=== PATIENT | female | born 1935 | race Caucasian/White ===

== ENCOUNTER 2016-06-06 05:08 | Inpatient (IN) | payer MEDICARE, BC ==
[2016-05-25 15:30] LABS: BASOPHILS 0.8 %; BASOPHILS ABSOLUTE 0.05 10/3/uL (0.0-0.16); EOSINOPHILS 2.6 %; EOSINOPHILS ABSOLUTE 0.16 10/3/uL (0.0-0.53); HEMATOCRIT 37.2 % (36.0-48.0); HEMOGLOBIN 12.5 g/dL (12.0-16.0); IMMATURE GRANULOCYTES 0.2 %; IMMATURE GRANULOCYTES ABSOLUTE 0.01 10/3/uL (0.0-0.11); LYMPHOCYTES 26.5 %; LYMPHOCYTES ABSOLUTE 1.65 10/3/uL (0.67-4.30); MEAN CORPUS HGB CONC 33.6 g/dL (32.0-36.0); MONOCYTES 8.5 %; MONOCYTES ABSOLUTE 0.53 10/3/uL (0.21-1.20); NEUTROPHILS 61.4 %; NEUTROPHILS ABSOLUTE 3.83 10/3/uL (2.02-8.40); PLATELET COUNT 261 10/3/uL (150-400); RBC DISTRIBUTION WIDTH 14.8 % (12.0-16.0); RED CELL COUNT 4.13 10/6/uL (4.0-5.6); WHITE BLOOD CELLS 6.2 10/3/uL (4.5-10.5)
[2016-05-25 15:35] LABS: MANUAL DIFF NO %; MEAN CORPUSCULAR HEMOGLOB 30.3 pg (26.0-34.0); MEAN CORPUSCULAR VOLUME 90.1 fL (80-100)
[2016-05-25 15:40] LABS: PROTIME (NOT ORD) 13.5 SEC (12.0-14.5)
[2016-05-25 15:49] LABS: A/G RATIO 0.8 (0.7-1.9); ALBUMIN 3.5 G/DL (3.5-5.0); CALCIUM, SERUM 8.8 MG/DL (8.5-10.4); CHLORIDE, SERUM 105 MMOL/L (96-112); CO2 (CARBON DIOXIDE) 29 MMOL/L (24-34); CREATININE 1.14 MG/DL (0.55-1.02); GFR AFRICAN AMERICAN 53 ML/MIN (>=60); GFR NON AFRICAN AMERICAN 45 ML/MIN (>=60); GLOBULIN 4.2 G/DL (2.5-4.1); SGOT(AST) 15 U/L (5-40); SGPT(ALT) 15 U/L (5-65); SODIUM, SERUM 143 MMOL/L (135-148); TOTAL BILIRUBIN 0.9 MG/DL (0-1.2); TOTAL PROTEIN 7.7 G/DL (6.0-8.5)
[2016-05-25 15:51] LABS: ALKALINE PHOSPHATASE 89 U/L (45-117); BUN (BLOOD UREA NITROGEN) 28 MG/DL (6-23); GLUCOSE, SERUM 105 MG/DL (60-99); POTASSIUM, SERUM 4.6 MMOL/L (3.5-5.3)
[2016-05-25 17:21] LABS: ASCORBIC ACID (UR NOT ORDER) NEG (NEG); BILIRUBIN, URINE NEGATIVE (NEG); KETONE, URINE NEGATIVE (NEG); WBC (NOT ORDERED) (RFLEX) 4 (0-5)
[2016-05-25 17:22] LABS: LEUKOCYTE ESTERASE(NOT OR TRACE (NEG)
--- NOTE | ~2016-06-06 | DS ---
Discharge Summary [facility] [address] [facility] [place] [address] NAME: MOISES LENTZ : 37 STATUS : DIS IN PAT#: [id number] AGE: 81 ADM/REG DATE : 06/06/16 MR#: [id number] REPORT SERV DATE: 06/21/16 DICTATED BY: KERMIT MIN DATE: 06/20/16 REPORT STATUS : Draft TRANSCRIBED BY: ROSE DATE: 06/20/16 Data Collection from hospitalization DISCHARGE DIAGNOSES: 1. Severe right knee degenerative joint disease. 2. Hypertension. 3. Anemia. 4. Depression. 5. Gastric ulcers. 6. Hypercholesterolemia. 7. Dementia. 8. Gastroesophageal reflux disease. 9. Osteoporosis. 10.Goiter. 11.Hyperlipidemia. 12.Gastroesophageal reflux disease. 13.Bipolar. CONSULTATIONS: None. PROCEDURES PERFORMED: Posterior stabilized total knee replacement, cemented, 06/06/2016. PATHOLOGY: Bone and soft tissue, right knee joint arthroplasty-degenerative joint disease. DISCHARGE MEDICATIONS: Namenda 10 mg twice a day, multivitamins one tablet daily, MiraLAX powder one packet as needed, Seroquel 25 mg three times a day, Risperdal 0.5 mg every day at bedtime, Zoloft 50 mg daily, Kenalog cream one application topically daily, Coumadin 2.5 mg daily. CONDITION AT DISCHARGE: Stable. DISPOSITION: The patient was discharged home to be followed by home health care on a regular diet with activities as instructed. She would follow up with Dany Loomis two weeks following discharge. HOSPITAL COURSE: This is an 81-year-old female, who had severe right knee degenerative joint disease. Treatment options were discussed and it was elected to proceed with surgical intervention. She was admitted to the hospital at this time for further evaluation and treatment. Upon admission, she was taken to the operating room, where she underwent the above-mentioned procedure. She tolerated this well and there were no complications. Postoperatively, she was evaluated by Occupational and Physical Therapy. On postop day #1, she was working with Physical Therapy. MARIETTA hose were in place. Over the next couple of days, she continued to progress. She was up sitting in a bedside chair. Discharge planning was performed. On 06/09/2016, discharge instructions were given. Due to her improved and stable condition, she was discharged home to be followed by home health care with the above-stated instructions. Discharge Summary [facility] [address] [place]. [address] NAME: MOISES LENTZ : 37 STATUS : DIS IN PAT#: [id number] AGE: 81 ADM/REG DATE : 06/06/16 MR#: [id number] REPORT SERV DATE: 06/21/16 DICTATED BY: KERMIT MIN DATE: 06/20/16 REPORT STATUS : Draft TRANSCRIBED BY: ROSE DATE: 06/20/16 Information collected by: Indu Cooper I submit the above information as my discharge summary. GARRET/ROSE Suresh Min M.D. / [id number] CC: Justin Ivory NP
--- NOTE | ~2016-06-06 | OP ---
Record Of Operation [facility] [address] [place]. [address] NAME: MOISES LENTZ : 37 STATUS : ADM IN [facility]#: [id number] AGE: 81 ADM/REG DATE : 06/06/16 MR#: [id number] REPORT SERV DATE: 06/06/16 DICTATED BY: KERMIT MIN DATE: 06/06/16 REPORT STATUS : Draft TRANSCRIBED BY: ROSE DATE: 06/06/16 DATE OF PROCEDURE: 06/06/2016 PREOPERATIVE DIAGNOSIS: Severe right knee degenerative joint disease. POSTOPERATIVE DIAGNOSIS: Severe right knee degenerative joint disease. OPERATION: Posterior stabilized total knee replacement, cemented. SIDE: Right. SIZE: See chart. ANESTHESIA: See chart. ESTIMATED BLOOD LOSS: About 10 mL. TOURNIQUET TIME: Approximately 1 hour and 10 minutes. COMPLICATIONS: None. SPECIMENS: Articular surfaces. PROCEDURE: The patient was appropriately identified and marked. The operative side agreed with the consent form and it was checked by all members of the surgical team. The patient was taken to the operating room and anesthesia was induced per the anesthesiologist. The patient was carefully transferred to the operating table without incident. The patient received appropriate prophylactic antibiotics and a Singh catheter was placed in the standard sterile technique. The patient was then carefully positioned, padded, prepped and draped in the normal sterile fashion. The operative leg had been appropriately identified and checked by all members of the operating team against the consent form and found to be the correct limb. The patient's lower extremity was then exsanguinated with an Juan M wrap and a tourniquet was inflated to 350 mm/Hg. Sharp dissection was carried out through a straight midline longitudinal incision and electrocautery through the fat. Sharp quad splitting approach was carried out between about the medial 10 percent of the tendon and the lateral 90 percent of the tendon and down around the medial aspect of the patella and then 1 cm medial to the tibial tubercle. The patella was carefully everted and the posterior fat pad was excised and gentle MCL elevation was carried out off the proximal medial tibia subperiosteally. IM guide was placed in the distal femur after using the appropriate drill. The distal femoral cutting guide was held with 2 pins and the distal cut made. Meniscal fragments and the ACL and the PCL were excised with electrocautery, carefully staying anterior to the posterior fat pad. The proximal tibial alignment guide was set appropriately and the proximal tibial cut made. Spacer block verified full extension with excellent mediolateral balance. Sizing guide was used to place 2 drill holes in the distal femur and the four-in-one cutting block was then placed, impacted and checked Record Of Operation [facility] [address] [place]. [address] NAME: MOISES LENTZ : 37 STATUS : ADM IN PAT#: [id number] AGE: 81 ADM/REG DATE : 06/06/16 MR#: [id number] REPORT SERV DATE: 06/06/16 DICTATED BY: KERMIT MIN DATE: 06/06/16 REPORT STATUS : Draft TRANSCRIBED BY: ROSE DATE: 06/06/16 to be sure it would not notch with an wilmer wing and it was held with 2 pins. The anterior cut, posterior cut, anterior chamfer and posterior chamfer cuts were made. The pins were removed and the block was removed. A posterior release was carried out with a curved 3/4 inch osteotome staying right on the bone posteriorly. The box-cut guide was then placed, impacted and held with 2 pins and a reciprocating saw was used to cut out the box. With the trial components in place, there was excellent medial/lateral balance. The patella was then measured with a caliper, cut first with an oscillating saw and then reamed with a patella reamer. With the trial patella in place, there was excellent patellar tracking. Rotation was marked on the tibia and the tibia prepared with a drill and stamp chisel. All surfaces were then copiously irrigated with pulsatile lavage, carefully dried and then vacuum-mixed cement was pressurized with a cement gun in a doughy phase. The tibial component was placed, impacted and excess cement was removed. The cement was then pressurized in the femur and placed on the posterior runners of the femoral component, which was placed, impacted and excess cement removed and the knee was brought out into extension on a trial spacer. The cement was then pressurized in the patella. Patellar component was then placed, clamped and excess cement was removed. Once all cement was hardened, the knee was taken through range of motion. Further extruded cement was removed with a small osteotome. Then based on the trial inserts, we decided on the actual insert, which was placed in the standard fashion and held with a locking mechanism. The knee was then copiously irrigated and then closed in a layered fashion over a medium Hemovac drain superolaterally with interrupted #1 in the deep fascia, 2-0 subcutaneous and selwyn in the skin. The wounds were dressed sterilely and the tourniquet was deflated. The patient was then awakened and taken to the postanesthesia care unit without incident. All counts were correct at the end of the case. WYATTB/ROSE Suresh Min M.D. / [id number] CC: Suresh Min M.D.
[~2016-06-06 05:08] MED LIST: *DENIES; AMOXIL500C PO; ATEN25 PO; BACTRONASA NAS; C25; ESTRACE VAGIN42.5 GM V; EYE VITAMIN; KENCR.1 TOP; LIPITOR20 PO; MAALOX PO; MEGA MULTI OR; MIRALAX POWDER1 PKT PO; MOBIC15 MG PO; MOBIC7.5 PO; MULTI-VIT HP PO; NAMENDA10 MG PO; NORCO1 TA1 PO; NORV10 PO; PRIN10 PO; RISP0.5 PO; SEROQUEL25 PO; VALTREX5 PO; VASOTEC10 PO; ZOL50 PO
[2016-06-07 05:51] LABS: INTERNATIONAL NORMAL RATI 1.2 UNITS (-); PROTIME (NOT ORD) 14.8 SEC (12.0-14.5)
[2016-06-07 05:57] LABS: HEMATOCRIT 26.3 % (36.0-48.0); HEMOGLOBIN 8.6 g/dL (12.0-16.0)
[2016-06-07 06:00] LABS: CALCIUM, SERUM 8.2 MG/DL (8.5-10.4); CHLORIDE, SERUM 110 MMOL/L (96-112); CREATININE 0.92 MG/DL (0.55-1.02); GFR AFRICAN AMERICAN 68 ML/MIN (>=60); GFR NON AFRICAN AMERICAN 59 ML/MIN (>=60); GLUCOSE, SERUM 115 MG/DL (60-99); POTASSIUM, SERUM 4.6 MMOL/L (3.5-5.3); SODIUM, SERUM 141 MMOL/L (135-148)
[2016-06-07 06:03] LABS: BUN (BLOOD UREA NITROGEN) 20 MG/DL (6-23); CO2 (CARBON DIOXIDE) 24 MMOL/L (24-34)
[2016-06-08 05:18] LABS: HEMATOCRIT 26.1 % (36.0-48.0); HEMOGLOBIN 8.5 g/dL (12.0-16.0)
[2016-06-08 05:21] LABS: INTERNATIONAL NORMAL RATI 1.4 UNITS (-)
[2016-06-09 08:18] LABS: BASOPHILS 0.9 %; BASOPHILS ABSOLUTE 0.07 10/3/uL (0.0-0.16); EOSINOPHILS 3.1 %; EOSINOPHILS ABSOLUTE 0.24 10/3/uL (0.0-0.53); HEMATOCRIT 28.6 % (36.0-48.0); HEMOGLOBIN 9.3 g/dL (12.0-16.0); IMMATURE GRANULOCYTES 0.4 %; IMMATURE GRANULOCYTES ABSOLUTE 0.03 10/3/uL (0.0-0.11); LYMPHOCYTES 22.6 %; LYMPHOCYTES ABSOLUTE 1.75 10/3/uL (0.67-4.30); MEAN CORPUS HGB CONC 32.5 g/dL (32.0-36.0); MEAN CORPUSCULAR HEMOGLOB 29.7 pg (26.0-34.0); MEAN CORPUSCULAR VOLUME 91.4 fL (80-100); MEAN PLATELET VOLUME 9.6 fL (9.2-13.0); MONOCYTES 11.2 %; MONOCYTES ABSOLUTE 0.87 10/3/uL (0.21-1.20); NEUTROPHILS 61.8 %; NEUTROPHILS ABSOLUTE 4.78 10/3/uL (2.02-8.40); PLATELET COUNT 189 10/3/uL (150-400); RBC DISTRIBUTION WIDTH 14.5 % (12.0-16.0); WHITE BLOOD CELLS 7.7 10/3/uL (4.5-10.5)
[2016-06-09 08:20] LABS: MANUAL DIFF NO %; RED CELL COUNT 3.13 10/6/uL (4.0-5.6)
[2016-06-09 08:22] LABS: INTERNATIONAL NORMAL RATI 1.5 UNITS (-); PROTIME (NOT ORD) 17.8 SEC (12.0-14.5)
[2016-06-09 08:29] LABS: BUN (BLOOD UREA NITROGEN) 18 MG/DL (6-23); CALCIUM, SERUM 8.5 MG/DL (8.5-10.4); CHLORIDE, SERUM 107 MMOL/L (96-112); CO2 (CARBON DIOXIDE) 28 MMOL/L (24-34); CREATININE 0.79 MG/DL (0.55-1.02); GFR AFRICAN AMERICAN 82 ML/MIN (>=60); GFR NON AFRICAN AMERICAN 71 ML/MIN (>=60); GLUCOSE, SERUM 96 MG/DL (60-99); POTASSIUM, SERUM 4.1 MMOL/L (3.5-5.3); SODIUM, SERUM 142 MMOL/L (135-148)
[2016-06-09] MEDS ORDERED: MULTIPLE VIT PO (16:01)
[2016-06-09] MEDS ORDERED: SEROQUEL25 PO (16:01)
[2016-06-09] MEDS ORDERED: C25 PO (16:02)
[2016-06-09] MEDS ORDERED: NORCO1 TA1 PO (16:03)
[2016-06-09] MEDS ORDERED: FESO4 PO (16:04)
[2016-06-09] MEDS ORDERED: DSS PO (16:05)
[2016-09-25] MEDS ORDERED: ARICEPT5 PO (13:15)
[2016-09-25] MEDS ORDERED: VALCYCLOVIR PO (13:16)
== END 2016-06-09 16:43 | disposition home or self-care (01) | DRG 470 ==
LOC: SDC/OF 05:08 → PACU 08:57 → 3SO 11:20
PROVIDERS: Specialist
PROC: 0SRC0J9 Replacement of Right Knee Joint with Synthetic Substitute, Cemented, Open Approach (ICD-10-PCS; principal; 2016-06-06 06:30)
DX: M17.11 Unilateral primary osteoarthritis, right knee (principal); F03.90 Unspecified dementia, unspecified severity, without behavioral disturbance, psychotic disturbance, mood disturbance, and anxiety; I10 Essential (primary) hypertension; F31.9 Bipolar disorder, unspecified; E78.5 Hyperlipidemia, unspecified; K21.9 Gastro-esophageal reflux disease without esophagitis
CPT/HCPCS: 71020; 80048; 80053; 81001; 85014; 85018; 85025; 85610; 87641; 88305; 88311; 93005; 97110-GP; 97116-GP; 97161-GP; 97166-GO; A9270-GY; C1776; G8978-CL-GP; G8979-CJ-GP; J0690; J1885; J2274; J2405; J2550; J2795; J3010; J3370